=== PATIENT | male | born 2000 | race Two or more races ===

== ENCOUNTER 2021-10-29 06:16 | Emergency (ER) | payer OTHER ==
[~2021-10-29] VITALS: Ht 165.1 cm; Wt 72.6 kg
[2021-10-29 06:28] VITALS: BP 145/70
--- NOTE | 2021-10-29 06:30 | NUR ---
[facility] TO ER BED 15. AAOX4. NOT IN RESP DISTRESS. AMBUALTORY. BROUGHT IN FOR BIZAARE BEHAVIOR. WHILE TALKING TO PATIENT, PT JUST WANTED TO LEAVE. HE DENIES ANY SUICIDAL NOR HOMICIDAL IDEATION. PT LEFT AND ELOPED FROM THE UNIT. WAS MADE AWARE.
[2021-10-29] MEDS: OLANZAPINE 10 MG VIAL IM ONE (06:36)
[2021-10-29] MEDS: diphenhydrAMINE HCL 50 MG/ML VIAL IM ONE (06:36)
== END 2021-10-29 06:38 | disposition left against medical advice (07) ==
LOC: ER 06:21
DX: Z53.21 Procedure and treatment not carried out due to patient leaving prior to being seen by health care provider (principal)